=== PATIENT | male | born 1975 | race Caucasian/White ===

== ENCOUNTER 2017-10-31 13:26 | Emergency (ER) | payer OTHER ==
[2017-10-31 14:15] VITALS: BP 136/65
--- NOTE | 2017-10-31 14:25 | UC ---
Skin Complaint HPI - HPI Summary HPI Summary: 42 year old male with skin complaint. Pt states he punctured his R hand with a autumn nail approx 1 hr ago while "at home". Pt called clinic earlier and stated that the injury occurred at work, now he is saying he was at home. Pt states he has not had a tetanus shot in a long time. No fever. no loss of ROM or strength. no redness. - History of Current Complaint Chief Complaint: UCWounds Time Seen by Provider: 10/31/17 14:21 Stated Complaint: PUNCTURE WOUND HAND W/NAIL Hx Obtained From: Patient Onset/Duration: Sudden Onset Skin Exposure Onset/Duration: Hours Ago - 1 Onset Severity: Mild Aggravating Factor(s): Nothing Alleviating Factor(s): Nothing Associated Signs & Symptoms: Positive: Negative Related History: Trauma - Allergy/Home Medications Allergies/Adverse Reactions: Allergies Allergy/AdvReac Type Severity Reaction Status Date / Time Penicillins Allergy Unknown Unknown Verified 10/31/17 14:15 Reaction Details Home Medications: Home Medications NK [No Home Medications Reported] 10/31/17 [History Confirmed 10/31/17] Review of Systems Skin: Other - puncture wound hand All Other Systems Reviewed And Are Negative: Yes PMH/Surg Hx/FS Hx/Imm Hx Previously Healthy: Yes - Surgical History Surgical History: Yes Surgery Procedure, Year, and Place: L ankle fx repair - Social History Alcohol Use: None Substance Use Type: None Smoking Status (MU): Heavy Every Day Tobacco Smoker Type: Cigarettes Amount Used/How Often: 1/2 ppd Length of Time of Smoking/Using Tobacco: since age 9 Have You Smoked in the Last Year: Yes Physical Exam Triage Information Reviewed: Yes Appearance: Well-Appearing, No Pain Distress, Well-Nourished Vital Signs: Initial Vital Signs Temp 98.5 F 10/31/17 14:08 Pulse 93 10/31/17 14:08 Resp 16 10/31/17 14:08 BP 136/65 10/31/17 14:08 Pulse Ox 99 10/31/17 14:08 Vital Signs Reviewed: Yes Eye Exam: Normal Respiratory Exam: Normal Cardiovascular Exam: Normal Musculoskeletal Exam: Normal Neurological Exam: Normal Psychological Exam: Normal Skin Exam: Normal Skin: Positive: Other - puncture wound hand lateral palmar, no bleeding, no erythema, no discharge Course/Dx - Course Course Of Treatment: Tdap today. he at this time denied it was at work despite nurse/triage stating he said it was at work - Diagnoses Provider Diagnoses: nail puncture wound to hand Discharge - Discharge Plan Condition: Good Disposition: HOME Patient Education Materials: Puncture Wound (ED) Referrals: No Primary Care Phys,NOPCP [Primary Care Provider] - If Needed Additional Instructions: You received your tetanus shot today
[2017-10-31] MEDS ORDERED: Tetan/Diph/Pertus SYR(Tdap)* 0.5 ML SYR(BOOSTRIX) use SYR IM ONE (14:30)
== END 2017-10-31 14:42 | disposition home or self-care (01) ==
LOC: UCCORT 13:26
DX: S61.431A Puncture wound without foreign body of right hand, initial encounter (principal); W45.0XXA Nail entering through skin, initial encounter; Y93.9 Activity, unspecified; Y92.009 Unspecified place in unspecified non-institutional (private) residence as the place of occurrence of the external cause; Z23 Encounter for immunization; Z88.0 Allergy status to penicillin; F17.210 Nicotine dependence, cigarettes, uncomplicated
CPT/HCPCS: 90471; 90715; 99202; G0463

== ENCOUNTER 2018-01-04 12:20 | Emergency (ER) | payer OTHER ==
[2018-01-04 13:06] VITALS: BP 117/80
[2018-01-04] MEDS ORDERED: BSS OPTH.SOL* BTL ONE (13:09)
[2018-01-04] MEDS ORDERED: Fluorescein Sod TOPICAL 0.6* 0.6 MG TEST OPHTHALMIC ONE ×2 (13:09→13:15)
[2018-01-04] MEDS ORDERED: Tetracaine 0.5% OPTH.SOL 4 ML* 1 DROP BTL ONE (13:09)
--- NOTE | 2018-01-04 13:19 | UC ---
Eye Complaint HPI - HPI Summary HPI Summary: PT STATES SOME ICE FELL OFF A ROOF AND HIT THE LEFT SIDE OF HIS FACE AND EYE AREAS. HE NOTES A SHORT TIME AFTER, HE DEVELOPED PAIN IN HIS LEFT EYE ALONG WITH REDNESS AND LIGHT SENSITIVITY. HE DID RUB THE EYE WITH A GLOVED HAND RIGHT AFTER SO NOT SURE IF HE HAS A SCRATCH. ADMITS TO TEARING BUT NO OVERT VISION LOSS. NO CONTACT OR CURRENT EYE GLASS USE. DENIES ANY HEADACHE AND ANY OTHER INJURIES. PT STATES "THERE IS SOMETHING VERY WRONG WITH MY EYE". "I HAVE A HIGH PAIN TOLRANCE AND THIS REALLY HURTS". - History of Current Complaint Stated Complaint: LEFT EYE COMPLAINT Time Seen by Provider: 01/04/18 12:59 Hx Obtained From: Patient, Family/Pear Picker Onset/Duration: Gradual Onset Timing: Constant Severity Initially: Mild Severity Currently: Moderate Pain Intensity: 3 Location of Injury: Globe - LEFT Aggravating Factor(s): Light Alleviating Factor(s): Nothing Associated Signs And Symptoms: Positive: Photophobia, Drainage (Clear), Vision Impairment Bilateral, Swelling - LEFT UPPER LID. Negative: Drainage (Purulent) , Vision Impairment Right, Vision Impairment Left, Fever - Risk Factors Penetrating Injury Risk Factor: Negative Globe Rupture Risk Factors: Recent Trauma Acute Glaucoma Risk Factors: Eye Inflammation, Eye Trauma Optic Artery Occlusion Risk Factors: Negative - Allergies/Home Medications Allergies/Adverse Reactions: Allergies Allergy/AdvReac Type Severity Reaction Status Date / Time Penicillins Allergy Unknown Verified 01/04/18 13:06 Reaction Details PMH/Surg Hx/FS Hx/Imm Hx Previously Healthy: Yes - Surgical History Surgical History: Yes Surgery Procedure, Year, and Place: L ankle fx repair - Social History Occupation: Employed Full-time Lives: With Family Alcohol Use: None Substance Use Type: None Smoking Status (MU): Heavy Every Day Tobacco Smoker Type: Cigarettes Amount Used/How Often: 1/2 ppd Length of Time of Smoking/Using Tobacco: since age 9 Have You Smoked in the Last Year: Yes Review of Systems Constitutional: Negative Skin: Negative Eyes: Eye Redness - LEFT, Photophobia - LEFT ENT: Negative Respiratory: Negative Cardiovascular: Negative Gastrointestinal: Negative Genitourinary: Negative Motor: Negative Neurovascular: Negative Musculoskeletal: Negative Neurological: Negative Psychological: Negative Is Patient Immunocompromised?: No All Other Systems Reviewed And Are Negative: Yes Physical Exam Triage Information Reviewed: Yes Appearance: Well-Appearing Vital Signs: Initial Vital Signs Temp 99.4 F 01/04/18 12:54 Pulse 94 01/04/18 12:54 Resp 16 01/04/18 12:54 BP 117/80 01/04/18 12:54 Pulse Ox 100 01/04/18 12:54 Vital Signs Reviewed: Yes Eyes: Positive: Other: - LEFT UPPER LID SLIGHT SWELLING. NO CRANIAL OR FACIAL INSTABILITY OR TENDERNESS. PERRL BUT LEFT EYE PAIN WITH DIRECT AND INDIRECT LIGHT. EOMI. AC CLEAR, NO HYPHEMA. CONJUCTIVIA INJECTED ON L. LIDS EVERTED NO FB 'S. STAIN PLACED AND NO ABRASIONS OR PREFORATIONS. L GLOBE TENDER WITH GENTLE PRESSURE. VISION WITH NO CORRECTION OD 20/25, OU 20/20, OS 20/30. ENT: Positive: Pharynx normal, TMs normal. Negative: Nasal congestion, Nasal drainage Neck: Positive: Supple, Nontender, No Lymphadenopathy Respiratory: Positive: Lungs clear, Normal breath sounds Cardiovascular: Positive: RRR, No Murmur Abdomen Description: Positive: Nontender, No Organomegaly, Soft Bowel Sounds: Positive: Present Musculoskeletal: Positive: ROM Intact Neurological: Positive: Alert Psychological: Positive: Age Appropriate Behavior Skin Exam: Normal Eye Complaint Course/Dx - Course Course Of Treatment: NO FB'S, ABRASIONS OR PERFORATIONS. NO HYPHEMA. UNLIKELY GLAUCOMA. PROBABLE TRAUMATIC IRITIS. DR RAM, OPTHAMOLOGY NOT [facility] FOR [facility] BUT WAS KIND ENOUGH TO RETURN MY CALL AND WILL SEE PT TONIGHT AT 6PM IN HIS OFFICE. HE REQUEST I START PREDNISOLONE ACETATE 1% 1 GTT qid AND CYCLOPENTOLATE 1% 1gtt BID now. - Differential Dx/Diagnosis Provider Diagnoses: Acute L eye pain with photophobia and conjunctivitis. Probable traumatic iritis Discharge - Discharge Plan Condition: Stable Disposition: HOME Prescriptions: Cyclopentolate 1% OPTH.MIKKI* [Cyclogyl 1% OPTH.MIKKI*] 1 drop LEFT EYE BID 5 Days # 1 btl prednisoLONE 1% OPHTH.SUSP* [Pred Forte 1%*] 1 drop .SEE ORDER QID 5 Days #1 btl Patient Education Materials: Iritis (ED) Referrals: Himanshu Ram MD [Medical Doctor] - Additional Instructions: FOLLOW UP TODAY AT 6PM WITH DR RAM GRACE BY THE [facility]
[2018-01-04] MEDS ORDERED: Ibuprofen ADULT LIQ* 600 MG/30 ML UDC PO ONE (13:29)
== END 2018-01-04 13:58 | disposition home or self-care (01) ==
LOC: UCCORT 12:20
DX: H57.12 Ocular pain, left eye (principal); H53.142 Visual discomfort, left eye; F17.210 Nicotine dependence, cigarettes, uncomplicated; W20.1XXA Struck by object due to collapse of building, initial encounter; Y93.9 Activity, unspecified; Y92.9 Unspecified place or not applicable; X58.XXXA Exposure to other specified factors, initial encounter; Y93.89 Activity, other specified; Z88.0 Allergy status to penicillin; H10.9 Unspecified conjunctivitis
CPT/HCPCS: 99212; A9270-GY; G0463

== ENCOUNTER 2018-01-25 13:34 | Emergency (ER) | payer OTHER ==
[2018-01-25 13:43] VITALS: BP 131/82
--- NOTE | 2018-01-25 14:39 | UC ---
Laceration HPI - HPI Summary HPI Summary: 42 y/o male presents to the urgent care c/o a cut a the tip of his left thumb while working on his car about 1 hr ago. Pt reports he mashed his thumb w/ a hammer and hit a steel and cut his finger. Pt is UTD w/ Tetanus shot. Pain is 5 //10. FROM of the thumb. Pt denies numbness or tingling over the thumb, SOB, chest pain, abdominal pain, N/V/D - History Of Current Complaint Chief Complaint: UCLaceration Stated Complaint: FINGER INJURY Time Seen by Provider: 01/25/18 14:32 Hx Obtained From: Patient Laceration Location: Finger - left thumb Mechanism Of Injury: Blunt Trauma Onset/Duration: Sudden Onset, Lasting Hours - 1 hr Severity: Moderate Pain Intensity: 5 Pain Scale Used: 0-10 Numeric Related History: Dominant Hand Right - Allergies/Home Medications Allergies/Adverse Reactions: Allergies Allergy/AdvReac Type Severity Reaction Status Date / Time Penicillins Allergy Unknown Verified 01/25/18 13:43 Reaction Details PMH/Surg Hx/FS Hx/Imm Hx Previously Healthy: Yes Respiratory History: Asthma - Surgical History Surgical History: Yes Surgery Procedure, Year, and Place: L ankle fx repair - Family History Known Family History: Positive: Diabetes - Social History Occupation: Employed Full-time Lives: With Family Alcohol Use: None Substance Use Type: None Smoking Status (MU): Light Every Day Tobacco Smoker Type: Cigarettes Amount Used/How Often: 1/2 ppd Length of Time of Smoking/Using Tobacco: since age 9 Have You Smoked in the Last Year: Yes Review of Systems Constitutional: Negative Skin: Other - left thumb w/ laceration at the ventral side Eyes: Negative ENT: Negative Respiratory: Negative Cardiovascular: Negative Gastrointestinal: Negative Genitourinary: Negative Motor: Negative Musculoskeletal: Decreased ROM - left thumb s/p injury, Other: - left thumb pain s/p injury Neurological: Negative Psychological: Negative Is Patient Immunocompromised?: No All Other Systems Reviewed And Are Negative: Yes Physical Exam - Summary Physical Exam Summary: Vital Signs Reviewed: Yes General: well developed, well nourished male sitting in the examining table w/o any apparent distress Eye Exam: Normal Eyes: Positive: Conjunctiva Clear - PERRLA, EOMI, fundi grossly normal ENT: Positive: Normal ENT inspection, Hearing grossly normal, Pharynx normal, TMs normal Neck: Positive: Supple, Nontender, No Lymphadenopathy Respiratory: Positive: Chest non-tender, Lungs clear, Normal breath sounds, No respiratory distress Cardiovascular: Positive: RRR, No Murmur, Pulses Normal, Brisk Capillary Refill Abdomen Description: Positive: Nontender, No Organomegaly, Soft. Negative: CVA Tenderness (R), CVA Tenderness (L) Bowel Sounds: Positive: Present Musculoskeletal: Positive: Strength Intact, ROM Intact, No Edema Neurological: Positive: Alert, Muscle Tone Normal Psychological Exam: Normal Skin: Positive:Ventral side of distal 1st left phalanx with a linear horizontal superficial laceration about 2.0cm in size, bleeding, no foreign body observed. mild tenderness to palpation, mild swelling. FROM of first phalanx, sensation intact, capillary refill brisk, and pulses WNL. Triage Information Reviewed: Yes Vital Signs: Initial Vital Signs Temp 97.7 F 01/25/18 13:41 Pulse 73 01/25/18 13:41 Resp 18 01/25/18 13:41 BP 131/82 01/25/18 13:41 Pulse Ox 98 01/25/18 13:41 Laceration Repair - Laceration Repair 1 Description: Linear Laceration Size After Repair: Length (cm) - 2.0cm Modified For Repair: No Type Injection: Local Anesthesia Used: 2.0% Lido - 3 ml Cleansing Completed Via Routine Prep: Yes Irrigation With Pressure Irrigation Device: Yes Closure Material: Sutures - 4 sutures Closure Method: Single Layer Suture Of: Skin, SQ Suture Type: Nylon Laceration Course/Dx - Course/Dx Course Of Treatment: 42 y/o male presents to the urgent care c/o a cut a the tip of his left thumb while working on his car about 1 hr ago. Pt reports he mashed his thumb w/ a hammer and hit a steel and cut his finger. Pt is UTD w/ Tetanus shot. Pain is 5//10. FROM of the thumb. Pt denies numbness or tingling over the thumb, SOB, chest pain, abdominal pain, N/V/D. Hx obtained. Pt w/ Ventral side of distal 1st left phalanx with a linear horizontal superficial laceration about 2.0cm in size, bleeding, no foreign body observed. mild tenderness to palpation, mild swelling. FROM of first phalanx, sensation intact , capillary refill brisk, and pulses WNL on examiantion.Left thumb X-ray ordered : impression: soft tissue swelling, and soft tissue defect. also some calcific debris which project in or on the soft tissue. No fracture observed or dislocation. LACERATION PROCEDURE NOTE: Copious irrigation was done with saline and presure since hands w/ a lot of greese by the nurse and the wound explored. There was no FB or deep structure injury noted. FROM of left hand and left thumb. procedure was explained and consent obtained, Timeout performed. The wound was anesthetized with 3 mL of 2% lido with good anesthesia. Sterile drape and prep were done. There were 4 sutures with 5.0 nylon type of suture. The length of the wound after closure was 2.0cm. No debridement done. Wound was covered bacitracin with sterile non adherent dressing. The Pt tolerated the procedure well without adverse effects. Neurovascular intact and FROM. Pt advised to f/u suture removal in 10-12 days and if any signs of infection develop to immediately return to the urgent care or PCP for further management and treatment. Pt understood and agreed and left the clinic ambulating A&Ox3. - Differential Dx - Laceration/Wound Differental Diagnoses: Abrasion, Avulsion, Laceration, Puncture Wound, Tendon Laceration, Other - fracture open or closed Provider Diagnoses: 1- Laceration repair of the first left phalanx. 2- left first phalanx pain s/p injury Discharge - Sign-Out/Discharge Documenting (check all that apply): Discharge - Discharge Plan Condition: Stable Disposition: HOME Prescriptions: Bacitracin OINTMENT* 1 applic TOPICAL TID #1 tube Patient Education Materials: Care For Your Stitches (ED), Laceration (ED) Referrals: [facility] [place] [facility]FERR[facility] [Outside] - 1 Week Additional Instructions: 1-Please apply topical antibiotic over the wound. Keep wound clean and dry 2- F/u suture removal in 10-12 days days w/ your PCP or here at the urgent care. 3-Take Ibuprofen or Tylenol PO q6-8hrs prn for pain or swelling. 4- If you develop fever or redness around your finger despite the antibiotic please go to the ER immediately or return to the Urgent care. - Billing Disposition and Condition Condition: STABLE Disposition: HOME
[2018-01-25] MEDS ORDERED: Lidocaine 2% 10 ML* VIAL INJ ONE (14:40)
--- NOTE | 2018-01-25 15:10 | RAD ---
INDICATION: Left thumb injury. TECHNIQUE: 3 views of the left thumb were obtained. FINDINGS: There is soft tissue swelling and a soft tissue defect adjacent to the tuft of the distal phalanx. The bones are normal alignment. No fracture is seen. There is punctate calcific debris which projects in or on soft tissues over the distal aspect of the thumb. IMPRESSION: 1. SOFT TISSUE SWELLING AND SOFT TISSUE DEFECT, NO FRACTURE IS SEEN. 2. CALCIFIC DEBRIS WHICH PROJECTS IN OR ON THE SOFT TISSUES.
[2018-01-25] MEDS ORDERED: Lidocaine 2% PF * 5 ML VIAL INJ ONE (15:12)
[2018-01-25] MEDS ORDERED: Lidocaine 2% PF * 5 ML VIAL ONE (15:13)
== END 2018-01-25 16:15 | disposition home or self-care (01) ==
LOC: UCEAST 13:34
DX: S61.012A Laceration without foreign body of left thumb without damage to nail, initial encounter (principal); W45.8XXA Other foreign body or object entering through skin, initial encounter; Y93.89 Activity, other specified; Y92.9 Unspecified place or not applicable; J45.909 Unspecified asthma, uncomplicated; Z88.0 Allergy status to penicillin; F17.210 Nicotine dependence, cigarettes, uncomplicated
CPT/HCPCS: 12001; 12002; 99211; G0463